=== PATIENT | male | born 1965 | race Caucasian/White ===

== ENCOUNTER 2023-04-24 09:23 | Outpatient (CLI) | payer OTHER, SELFPAY ==
--- NOTE | 2023-04-24 09:46 | XRR_ITS ---
PROCEDURE INFORMATION: Exam: XR Temporomandibular Joints, Open and Closed Mouth Exam date and time: 04/24/2023 9:53 AM Age: 57 years old Clinical indication: Condition or disease; Patient HX: Evaluate extent of necrotic bone present in lower mandible; Additional info: Evaluate extent of necrotic bone present in lr mandible TECHNIQUE: Imaging protocol: XR of the bilateral temporomandibular joints, open and closed mouth views. COMPARISON: No relevant prior studies available. FINDINGS: Sinuses: Well aerated. No opacification. Bones/joints: Open and closed mouth views of the TMJs to include lateral views of the right and left sides. No frontal views were included. TMJs appear unremarkable without TMJ displacement or dislocation. No abnormal positioning is seen between the open and closed mouth views. Joint spaces appear unremarkable. Lateral views of the left side suggest less rounded appearance of the mandibular head than the right side, with more of a cone shaped appearance which could indicate some underlying bony erosive remodeling. Soft tissues: Unremarkable. XR/[id number] IMPRESSION: Mild asymmetric appearance of the mandibular head of the left lateral views in relation to the right lateral views, as noted above. TMJs are otherwise unremarkable.
== END 2023-04-24 09:24 | disposition home or self-care (01) ==
PROVIDERS: PCP Nurse Practitioner Family; Visit Provider Nurse Practitioner Family
DX: M27.2 Inflammatory conditions of jaws (principal); M26.12 Other jaw asymmetry
CPT/HCPCS: 70330